=== PATIENT | female | born 1965 | race Caucasian/White ===

== ENCOUNTER 2019-05-10 18:39 | Emergency (ER) | payer OTHER ==
[~2019-05-10] VITALS: Ht 165.1 cm; Wt 64.9 kg
[2019-05-10 19:10] VITALS: BP 144/83
[2019-05-10] MEDS: methylPREDNISolone SS 125 MG/2 ML VIAL IM ONE (19:52)
[2019-05-10] MEDS: ALBUTEROL SULFATE/IPRATROPIU 3 ML SOL IH ONE (20:00)
--- NOTE | 2019-05-10 20:00 | NUR ---
RT AT BEDSIDE FOR TX.
[2019-05-10] MEDS: IBUPROFEN 600 MG TAB PO ONE (20:03)
--- NOTE | 2019-05-10 20:05 | NUR ---
53 Y/O F PRESENTED TO ED WITH C/O DIFFICULTLY BREATHING X 2DAYS. WITHOUT INHALER X1 WEEK. WHEEZING HEARD TO BILATERAL UPPER LOBES. O2 SATURTION MAINTAINED 100% . WILL CONTINUE TO MONITOR. PMH- HTN, ASTHMA, BROCHITIS, SCIATICA NKA
--- NOTE | 2019-05-10 20:17 | NUR ---
Patient discharged with v/s stable. Written and verbal after care instructions given and explained. Patient alert, oriented and verbalized understanding of instructions. Ambulatory with steady gait. All questions addressed prior to discharge. ID band removed. Patient advised to follow up with PMD. Rx of Albuterol, ibuprofen, and prednisone given. Patient educated on indication of medication including possible reaction and side effects. Opportunity to ask questions provided and answered.
== END 2019-05-10 20:17 | disposition home or self-care (01) ==
LOC: MED 18:39
DX: J45.901 Unspecified asthma with (acute) exacerbation (principal); M54.30 Sciatica, unspecified side; F17.210 Nicotine dependence, cigarettes, uncomplicated
CPT/HCPCS: 94640; 96372; 99283; J2930; J7620

== ENCOUNTER 2019-06-01 20:14 | Emergency (ER) | payer OTHER ==
[~2019-06-01] VITALS: Ht 165.1 cm; Wt 66.0 kg
[2019-06-01 20:15] VITALS: BP 140/79
[2019-06-01] MEDS: HYDROcodone/APAP 5/325 MG 1 TAB TAB PO ONE (20:47)
[2019-06-01 22:06] VITALS: BP 140/79
== END 2019-06-01 22:06 | disposition home or self-care (01) ==
LOC: MED 20:14
DX: J44.9 Chronic obstructive pulmonary disease, unspecified (principal); N39.0 Urinary tract infection, site not specified; I10 Essential (primary) hypertension; Z87.891 Personal history of nicotine dependence; Z98.890 Other specified postprocedural states
CPT/HCPCS: 71045; 81002; 99283; Q0092

== ENCOUNTER 2019-07-30 09:56 | Emergency (ER) | payer OTHER ==
[~2019-07-30] VITALS: Ht 165.1 cm; Wt 66.2 kg
--- NOTE | 2019-07-30 10:17 | NUR ---
PT TAKEN TO ER BED 08
[2019-07-30 10:19] VITALS: BP 135/91
--- NOTE | 2019-07-30 10:30 | NUR ---
PT C/O PRODUCTIVE COUGH W/ GREENISH PHLEGM FOR ABOUT 2 MONTHS. PT ALSO REPORTS HAVING NAUSEA AND LOOSE STOOL AND LOWER RIB PAIN BILATERAL. LUNGS AUSCULTATED WHEEZES BILATERAL. PATIENT STATES PAIN OF 5/10 AT THIS TIME; VSS; PATIENT POSITIONED FOR COMFORT; HOB ELEVATED; BEDRAILS UP X1; BED DOWN. ER MD MADE AWARE OF PT STATUS.
[2019-07-30] MEDS ORDERED: AMOXICILLIN 500 MG CAP PO ONE (11:20)
[2019-07-30 11:30] VITALS: BP 129/89
--- NOTE | 2019-07-30 11:30 | NUR ---
Patient discharged with v/s stable. Written and verbal after care instructions given and explained. Patient alert, oriented and verbalized understanding of instructions. Ambulatory with steady gait. All questions addressed prior to discharge. ID band removed. Patient advised to follow up with PMD. Rx of AMOXICILIN, PROMETHAZINE/DEXTROMETHORPHAN SYRUP given. Patient educated on indication of medication including possible reaction and side effects. Opportunity to ask questions provided and answered.
== END 2019-07-30 11:30 | disposition home or self-care (01) ==
LOC: MED 09:56
DX: J18.9 Pneumonia, unspecified organism (principal); J44.9 Chronic obstructive pulmonary disease, unspecified; I10 Essential (primary) hypertension; F17.200 Nicotine dependence, unspecified, uncomplicated; Z71.6 Tobacco abuse counseling
CPT/HCPCS: 71045; 99283; Q0092

== ENCOUNTER 2020-07-20 23:16 | Emergency (ER) | payer OTHER ==
[~2020-07-20] VITALS: Ht 165.1 cm; Wt 68.0 kg
[2020-07-20 23:25] VITALS: BP 150/90
--- NOTE | 2020-07-20 23:40 | NUR ---
PT TAKEN TO BED #9
--- NOTE | 2020-07-20 23:51 | NUR ---
Dr. Nichols examining patient.
[2020-07-20] MEDS ORDERED: ALBUTEROL SULFATE/IPRATROPIU 3 ML SOL IH ONE (23:55)
[2020-07-20] MEDS ORDERED: predniSONE 20 MG TAB PO ONE (23:55)
[2020-07-21] MEDS ORDERED: predniSONE 20 MG TAB PO ONE
--- NOTE | 2020-07-21 | NUR ---
see complete assessment.
[2020-07-21] MEDS ORDERED: ALBUTEROL 0.083% 2.5 MG/3 ML NEBU INH ONE (00:15)
--- NOTE | 2020-07-21 00:21 | NUR ---
RT performing breathing tx on pt.
--- NOTE | 2020-07-21 00:21 | NUR ---
Supriya swab collected via HEEL SEWER route and sent to lab.
--- NOTE | 2020-07-21 00:34 | NUR ---
XR at bedside.
[2020-07-21] MEDS ORDERED: ALBUTEROL SULFATE/IPRATROPIU 3 ML SOL IH ONE ×3 (01:05)
--- NOTE | 2020-07-21 02:12 | NUR ---
Patient discharged with v/s stable. Written and verbal after care instructions given and explained. Patient alert, oriented and verbalized understanding of instructions. Ambulatory with steady gait. All questions addressed prior to discharge. ID band removed. Patient advised to follow up with PMD. Rx of PREDNISONE, ALBUTEROL, AND GUAIFENESIN given. Patient educated on indication of medication including possible reaction and side effects. Opportunity to ask questions provided and answered.
[2020-07-21 02:13] VITALS: BP 125/49
== END 2020-07-21 02:12 | disposition home or self-care (01) ==
LOC: MED 23:16
DX: J45.901 Unspecified asthma with (acute) exacerbation (principal); I10 Essential (primary) hypertension; J44.9 Chronic obstructive pulmonary disease, unspecified; Z71.6 Tobacco abuse counseling; Z20.828 Contact with and (suspected) exposure to other viral communicable diseases
CPT/HCPCS: 71045; 81025; 87426; 93005; 94640; 99285; J7512; J7613

== ENCOUNTER 2021-09-17 17:11 | Emergency (ER) | payer OTHER ==
--- NOTE | 2021-09-17 17:42 | NUR ---
PT CALLED NO ANSWER. MADE AWARE.
--- NOTE | 2021-09-17 17:50 | NUR ---
CALLED PT FOR SECOND TIME NO ANSWER. MESSAGE STATES "NOT A WORKING NUMBER". MADE AWARE.
--- NOTE | 2021-09-17 18:00 | NUR ---
CALLED PT FOR THIRD TIME, NO ANSWER. PT LWBS MADE AWARE.
== END 2021-09-17 17:42 | disposition left against medical advice (07) ==
LOC: MED 17:11
DX: J11.1 Influenza due to unidentified influenza virus with other respiratory manifestations (principal); Z53.21 Procedure and treatment not carried out due to patient leaving prior to being seen by health care provider

== ENCOUNTER 2021-12-31 16:32 | Inpatient (IN) | payer OTHER ==
[~2021-12-31] VITALS: Ht 165.1 cm; Wt 75.9 kg
[2021-12-31] MEDS: NACL 0.9% 1,000 ML IV SCH (00:55)
[2021-12-31 16:39] VITALS: BP 163/85
[2021-12-31] MEDS ORDERED: MORPHINE SULFATE 4 MG/ML SYR IVP ONE (17:30)
--- NOTE | 2021-12-31 17:38 | NUR ---
PT C/O 8/[address]IN WITH SOB. [address] BARKER MADE AWARE
[2021-12-31 17:42] LABS: BASOPHILS % (AUTO) 0.5 % (0.0-2.0); EOSINOPHILS # (AUTO) 0.4 K/uL (0-0.4); EOSINOPHILS % (AUTO) 6.2 % (0.0-4.0); HEMATOCRIT 38.5 % (36-48); HEMOGLOBIN 13.1 g/dL (12.0-16.0); LYMPHOCYTES # (AUTO) 1.7 K/uL (2.5-16.5); LYMPHOCYTES % (AUTO) 25.5 % (20.5-51.1); MEAN CORPUSCULAR HEMOGLOBIN 31 pg (27-31); MEAN CORPUSCULAR HGB CONC 34 g/dL (33-37); MEAN CORPUSCULAR VOLUME 92.3 fL (80-94); MONOCYTES # (AUTO) 0.5 K/uL (0.8-1.0); MONOCYTES % (AUTO) 8.2 % (1.7-9.3); NEUTROPHILS % (AUTO) 59.6 % (42.2-75.2); PLATELET COUNT (AUTO) 374 K/uL (140-450); RED BLOOD CELL COUNT(AUTO) 4.17 MIL/uL (4.20-5.40); RED CELL DISTRIBUTION WIDTH 12.6 % (11.6-13.7); WHITE BLOOD COUNT (AUTO) 6.7 K/uL (4.8-10.8)
--- NOTE | 2021-12-31 17:47 | NUR ---
RAD AT BEDSIDE
[2021-12-31 18:04] LABS: ANION GAP 11.7 (8-16); CARBON DIOXIDE 26.9 mmol/L (21-32); CREATININE 0.6 mg/dL (0.6-1.3); POTASSIUM 3.6 mmol/L (3.5-5.1)
[2021-12-31 18:05] LABS: TOTAL BILIRUBIN 0.3 mg/dL (0.0-1.0)
[2021-12-31 18:06] LABS: ALBUMIN 3.5 g/dL (3.4-5.0)
--- NOTE | 2021-12-31 18:13 | NUR ---
56/F PRESENTS TO ED WITH C/O INTERMITTENT EPISODES OF SOB AND LEFT SIDED CHEST PAIN AND NUMBNESS. PATIENT REPORTS PAIN IS 7/10 AND WORSENS WITH MOVEMENT. PATIENT DENIES RECENT INJURY OR TRAUMA, DENIES FEVER, COUGH, N/V/D.
--- NOTE | 2021-12-31 18:20 | NUR ---
pt self ambulated to use restroom
[2021-12-31 18:52] LABS: APPEARANCE,URINE CLEAR (CLEAR); BILIRUBIN,URINE NEGATIVE (NEGATIVE); BLOOD, URINE NEGATIVE (NEGATIVE); COLOR,URINE YELLOW (YELLOW); LEUKOCYTE ESTERASE ,URINE NEGATIVE (NEGATIVE); NITRITE, URINE NEGATIVE (NEGATIVE); UGLUCOSE NEGATIVE (NEGATIVE)
--- NOTE | 2021-12-31 19:12 | NUR ---
PATIENTS BP 175/75, DR. BARKER MADE AWARE
--- NOTE | 2021-12-31 19:25 | NUR ---
Pt report given to BETSY FRAUSTO. Transfer of care at this time.
--- NOTE | 2021-12-31 20:04 | NUR ---
PT COMPLAINED BACK HURT. LOWERED BACK OF BED FOR PT
[2021-12-31] MEDS ORDERED: KETOROLAC 30 MG/ML VIAL IVP ONE (21:15)
--- NOTE | 2021-12-31 21:34 | NUR ---
PT [facility]. PROVIDED PT NIHARIKA , RUSSERS AND JUICE
[2021-12-31] MEDS ORDERED: ONDANSETRON 4 MG/2 ML VIAL IVP PRN (22:25)
[2021-12-31] MEDS ORDERED: ACETAMINOPHEN 325 MG TAB PO PRN (22:25)
[2021-12-31] MEDS ORDERED: MORPHINE SULFATE 4 MG/ML SYR IVP PRN (22:25)
[2021-12-31] MEDS ORDERED: POTASSIUM CHLORIDE 10 MEQ TABER PO PRN (22:25)
[2021-12-31] MEDS ORDERED: MAGNESIUM OXIDE 400 MG TAB PO PRN (22:25)
--- NOTE | 2021-12-31 22:26 | NUR ---
SWABBED PATIENT AND GIVEN TO WARPING MACHINE OPERATOR
[2021-12-31] MEDS ORDERED: ALBU0.0912 IH (22:55)
[2022-01-01] VITALS: BP 123/59
--- NOTE | 2022-01-01 | NUR ---
I NOTICE THERE IS BAND AID ON R FOOT - I ASK TO THE PT WHAT IS THAT BAND AID - SHE SAID SHE STEPPED IN SHARP ANIMAL BONE A DAYS AGO AND IT IS VERY PAINFUL - REMOVE THE BAND AID , ASSESS THE FOOT - NO ANY WOUND NOTED - WILL ENDORSE .
--- NOTE | 2022-01-01 | NUR ---
RECEIVED PATIENT FROM ER. ALERT ORIENTED X 4. COMPLAINTS OF DULL PAIN TO THE CHEST 01/08. REPORTED TO RN COVERING THE IVPB. ALL ADMISSION INQUIRES WHERE COLLECTED AND TURNED OVER TO RN FOR ADMISSION ASSESSMENT. PATIENT WAS GIVEN CALL LIGHT AND EXPLAINED HOW IT WORKS. PATIENT UNDERSTOOD. [id number]
--- NOTE | 2022-01-01 01:01 | NUR ---
At 00:09 Tx pt to the floor via gurney Patient will be admitted to care of Ian WOOD. Admited to Telemetry. Will go to room 104B. Belongings list completed. Report to Veronica MEYER.
[2022-01-01] MEDS: HYDROcodone/APAP 5/325 MG 1 TAB TAB PO PRN ×2 (01:36→20:50)
--- NOTE | 2022-01-01 03:45 | NUR ---
NURSING NOTED PATIENT IN BED ASLEEP WITHOUT RESPIRATORY DISTRESS OR ACUTE PAIN/COMFORT. SIDE RAILS UP X 2. CALL LIGHT WITHIN REACH. [id number]
[2022-01-01 04:00] VITALS: BP 138/69
[2022-01-01 05:34] LABS: BASOPHILS % (AUTO) 0.6 % (0.0-2.0); EOSINOPHILS # (AUTO) 0.5 K/uL (0-0.4); EOSINOPHILS % (AUTO) 9.1 % (0.0-4.0); HEMATOCRIT 36.6 % (36-48); HEMOGLOBIN 12.2 g/dL (12.0-16.0); LYMPHOCYTES % (AUTO) 35.9 % (20.5-51.1); MEAN CORPUSCULAR HEMOGLOBIN 31 pg (27-31); MEAN CORPUSCULAR HGB CONC 33 g/dL (33-37); MEAN CORPUSCULAR VOLUME 93.5 fL (80-94); MONOCYTES # (AUTO) 0.5 K/uL (0.8-1.0); MONOCYTES % (AUTO) 8.6 % (1.7-9.3); NEUTROPHILS # (AUTO) 2.5 K/uL (1.8-7.7); NEUTROPHILS % (AUTO) 45.8 % (42.2-75.2); PLATELET COUNT (AUTO) 336 K/uL (140-450); RED BLOOD CELL COUNT(AUTO) 3.92 MIL/uL (4.20-5.40); RED CELL DISTRIBUTION WIDTH 12.7 % (11.6-13.7); WHITE BLOOD COUNT (AUTO) 5.5 K/uL (4.8-10.8)
[2022-01-01 05:37] LABS: ANION GAP 9.9 (8-16); CARBON DIOXIDE 26.8 mmol/L (21-32); CREATININE 0.7 mg/dL (0.6-1.3); POTASSIUM 3.7 mmol/L (3.5-5.1)
--- NOTE | 2022-01-01 06:58 | NUR ---
PATIENT REMAINS IN BED SLEEPING WITHOUT DISTRESS. NO S/SX OF ACUTE CHEST PAIN. PATIENT BED IS IN THE LOWEST POSITION. CALL LIGHT WITHIN REACH FOR ASSISTANCE. BREATHING WITHOUT DISTRESS. CHEST RISING AND FALLING EVENLY. [id number]
--- NOTE | 2022-01-01 07:15 | NUR ---
RECEIVED REPORT FROM EPIC RADIANT ANALYST NURSE. PT IS SLEEPING, NOT IN DISTRESS AT THIS TIME. IV SITE ON RIGHT HAND, 20G. DISCUSSED PLAN OF CARE. WILL CONTINUE TO MONITOR.
--- NOTE | 2022-01-01 07:22 | NUR ---
ENDORSED PATIENT TO JOSE MANUEL RN FOR CONTINUITY OF CARE. PATIENT IS CURRENTLY STABLE. [email or web address]
[2022-01-01 08:00] VITALS: BP 126/70
--- NOTE | 2022-01-01 08:51 | NUR ---
PATIENT HAS BEEN SCREENED AND CATEGORIZED MODERATE NUTRITION RISK. PATIENT WILL BE SEEN WITHIN 3-5 DAYS OF ADMISSION. [address]
[2022-01-01] MEDS: ENOXAPARIN 40 MG/0.4 ML SYR SUBQ SCH (09:00)
[2022-01-01] MEDS: NACL 0.9% 1,000 ML IV SCH ×3 (10:55→23:25)
[2022-01-01] MEDS: ALBUTEROL 0.083% 2.5 MG/3 ML NEBU INH PRN ×2 (11:15→21:11)
[2022-01-01 12:00] VITALS: BP 146/76
--- NOTE | 2022-01-01 12:00 | NUR ---
DC PLANNING PATIENT IS A 56 YR OLD FEMALE WHO PRESENTED TO [facility]/ED ON 12/31/21FOR A TWO WEEK HX OF MODERATE AND INTERMITTENT SHORTNESS OF BREATH AND NON RADIATING LEFT SIDED CHEST PAIN ASSOCIATED WITH SLIGHT LEFT SIDED NUMBNESS. PATIENT HAS HX OF COPD, ASTHMA, BRONCHITIS, RAD AND SCIATICA. SW MET WITH PATIENT AT BEDSIDE FOR THE PURPOSE OF DISCUSSING AND GATHERING COLLATERAL INFORMATION. PATIENT REPORTS LIVING AT THE ADDRESS LISTED WITH A ROOMMATE. PATIENT REPORTS EMERGENCY CONTACT AND MEDICAL DECISION MAKER KATT OLEARY (CLOSE FRIEND) [phone]. SW INQUIRED ON A.D; PATIENT DENIED CURRENTLY HAVING A.D IN PLACE AND DECLINED A.D PACKET OFFERED BY SW. PATIENT REPORTS BEING INCONSISTENT WITH SEEING PCP AND REPORTS LAST VISIT A YEAR AND A HALF AGO. SW SPOKE WITH PATIENT ABOUT THE IMPORTANCE OF FOLLOW UP CARE WITH PCP, PATIENT WAS RECEPTIVE AND PROVIDED SW WITH PERMISSION TO SCHEDULE FOLLOW UP APPT WITH PCP. PATIENT REPORTS BEING INDEPENDENT AND DENIES USE OF DME. PATIENT DENIES BARRIERS IN ACQUIRING MEDICATION. PATIENT REPORTS TENTATIVE PLAN IS TO DC HOME AND REPORTS THAT SHE WILL TRANSPORT HERSELF BACK HOME SHE DROVE HERSELF TO HOSPITAL. PATIENT REPORTS ADEQUATE FRIEND AND FAMILY SUPPORT AND REPORTS THAT CLOSE FRIEND OR ROOMMATE WILL AID IN HER CARE, IF REQUIRED. PATIENT INQUIRED ON DC AND SW DIRECTED PATIENT TO SPEAK WITH ATTENDING PHYSICIAN SW WAS UNABLE TO PROVIDE ANSWER. PATIENT WAS IN UNDERSTANDING. SW INQUIRED ON RESOURCES NEED, PATIENT DECLINED AT THIS TIME. Addendum: 01/01/22 at 1352 by Jamie KELLEY SW WAS CALLED BY NURSE REQUESTED BY PATIENT. SW MET WITH PATIENT, WHO REPORTED THAT SHE WAS AT RISK OF LOSING HOUSING. PATIENT REPORTED THAT SHE WAS RECENTLY NOTIFIED THAT SHE WOULD BE LOSING HOUSING ON 01/11. PATIENT REPORTED SHE WAS INITIALLY EMBARRASSED TO DISCLOSE. PATIENT REQUESTED RESOURCES ON IHSS. SW PROVIDED PATIENT WITH EMERGENCY ASSISTANCE RESOURCES, HOMELESS/PENITENTIARY RESOURCES AND IHSS RESOURCES. PATIENT WAS ENCOURAGED BY SW TO BEGIN MAKING PHONE CALLS TO THE NUMBERS LISTED IN RESOURCE PACKETS. PATIENT WAS IN UNDERSTANDING AND REPORTED THAT SHE WOULD FOLLOW UP WITH RESOURCES PROVIDED.
--- NOTE | 2022-01-01 12:00 | NUR ---
PT IS AWAKE, LYING ON HER BED. PT DENIES PAIN AT THIS TIME. WILL CONTINUE TO MONITOR.
--- NOTE | 2022-01-01 14:15 | NUR ---
DC PLANNIN YRS OLD FEMALE PATIENT WAS ADMITTED FROM HOME WITH A DX OF CHEST PAIN. PATIENT HAS A HX OF COPD, ASTHMA, BRONCHITIS RAD AND SCIATICA. CXR SHOWED NO ACUTE FINDINGS. RAPID COVID TEST NEGATIVE. ADMINISTER IVF, AND ACS PROTOCOL CONSULTED WITH POINT OF SALE ASSOCIATE. DC PLAN TO GO HOME WHEN STABLE. CM TO FOLLOW.
--- NOTE | 2022-01-01 15:01 | NUR ---
STARTED NACL IV BAG, AT 80ML/HR, INFUSING WELL.
[2022-01-01 16:00] VITALS: BP 150/79
--- NOTE | 2022-01-01 16:00 | NUR ---
PT IS LYING ON HER BED, AWAKE AND NOT IN DISTRESS.
--- NOTE | 2022-01-01 19:25 | NUR ---
GAVE REPORT TO INFORMATION SYSTEMS SPECIALIST NURSE, PT IS STABLE. DISCUSSED PLAN OF CARE.
--- NOTE | 2022-01-01 19:25 | NUR ---
RECD. RESTING IN BED, AWAKE, A/OX4. RESPIRATION EVEN AND UNLABORED. IV OF NS INFUSING AT 80 ML/HR, LEFT HAND G20. WATCHING TV. ABLE TO AMBULATE BY HERSELF. MEDICATIONS AND CARE FOR THE SHIFT DISCUSSED WITH PATIENT. VERBALIZED UNDERSTANDING. DENIES PAIN 0/10.
[2022-01-01 20:00] VITALS: BP 126/63
--- NOTE | 2022-01-01 20:00 | NUR ---
Patient's Plan of Care was discussed and reviewed with BETSY FISHER.
[2022-01-01] MEDS ORDERED: guaiFENesin 20 MG/ML UDC PO PRN (20:50)
--- NOTE | 2022-01-01 20:50 | NUR ---
EXTRA PILLOW PLACED ON LEFT SIDE OF PATIENT FOR COMFORT, COMPLAINED OF PAIN IN THE LEFT SIDE OF HER ABDOMEN.
[2022-01-02] VITALS: BP 126/63
--- NOTE | 2022-01-02 | NUR ---
SLEEPING COMFORTABLY IN BED, RESPIRATION EVEN AND UNLABORED.
[2022-01-02] MEDS: ALBUTEROL 0.083% 2.5 MG/3 ML NEBU INH PRN ×2 (01:17→09:54)
--- NOTE | 2022-01-02 02:00 | NUR ---
AWAKE IN BED, REQUEST FOR SNACKS GIVEN. ATE 100%.
[2022-01-02 04:00] VITALS: BP 116/46
--- NOTE | 2022-01-02 04:00 | NUR ---
SINUS RHYTHM ON TELE MONITORING. NO COMPLAINT OF CHEST PAIN AT THIS TIME.
--- NOTE | 2022-01-02 05:57 | NUR ---
VERBALIZED THAT SHE WANTS TO GO HOME TODAY. ADVISED TO DISCUSS WITH MD WHEN THE MAKE ROUNDS TODAY.
[2022-01-02] MEDS: NACL 0.9% 1,000 ML IV SCH ×2 (06:02→11:55)
--- NOTE | 2022-01-02 07:35 | NUR ---
CONDITION REMAIN STABLE. ENDORSED TO AM SHIFT NURSE FOR CONTINUITY OF CARE.
[2022-01-02 08:00] VITALS: BP 129/46
[2022-01-02] MEDS ORDERED: ALBU0.0912 IH (09:12)
[2022-01-02] MEDS ORDERED: ROB PO (09:12)
[2022-01-02] MEDS: ENOXAPARIN 40 MG/0.4 ML SYR SUBQ SCH (09:15)
[2022-01-02 10:48] VITALS: BP 129/46
== END 2022-01-02 12:30 | disposition home or self-care (01) | DRG 203 ==
LOC: MED 16:35 → MTU 22:28 → OBSVTOIN 01-01 09:29
PROVIDERS: ADMIT Student in an Organized Health Care Education/Training Program; ATTEND Student in an Organized Health Care Education/Training Program
DX: M94.0 Chondrocostal junction syndrome [Tietze] (principal); E83.51 Hypocalcemia; J42 Unspecified chronic bronchitis; Z20.822 Contact with and (suspected) exposure to COVID-19
CPT/HCPCS: 96374; 96375; 99285; G0378; 36415; 71045; 80048; 80053; 81003; 83880; 84484; 85025; 93005; 94640; J1650; J1885; J2270; J7613; Q0092

== ENCOUNTER 2022-04-12 19:23 | Emergency (ER) | payer OTHER ==
[~2022-04-12] VITALS: Ht 165.1 cm; Wt 70.4 kg
[~2022-04-12 19:23] MED LIST: ALBU0.0912 IH; ROB PO
[2022-04-12 19:41] VITALS: BP 150/86
--- NOTE | 2022-04-12 19:44 | NUR ---
TO LOBBY A/W BED AMBULATORY
--- NOTE | 2022-04-12 22:46 | NUR ---
PATIENT CALLED TO BE SEEN BY ERMD, NO RESPONSE PATIENT LEFT WITHOUT BEING SEEN BY DR. MARTINEZ. NO FURTHER CARE PROVIDED FOR PATIENT.
--- NOTE | 2022-04-12 22:52 | NUR ---
CALLED FOR THE SECOND TIME , NO RESPONSE
--- NOTE | 2022-04-12 23:00 | NUR ---
CALLED FOR THE THIRD TIME NO RESPONSE
== END 2022-04-12 22:46 | disposition left against medical advice (07) ==
LOC: MED 19:23
DX: R06.02 Shortness of breath (principal); R05.9 Cough, unspecified; R07.89 Other chest pain; Z53.21 Procedure and treatment not carried out due to patient leaving prior to being seen by health care provider
CPT/HCPCS: 71045; 93005; 99281; Q0092